=== PATIENT | male | born 1995 | race Caucasian/White ===

== ENCOUNTER 2020-10-19 13:05 | Emergency (ER) | payer OTHER, SELFPAY ==
[2020-10-19 13:46] VITALS: BP 123/69; PULSE 64; RESP 16; TEMP 36.7; O2SAT 97; BMI 25.1
--- NOTE | 2020-10-19 13:51 | ED_ITS ---
HPI - Wound/Laceration General Chief Complaint: Wound/Laceration Stated Complaint: finger lac Time Seen by Provider: 10/19/20 13:44 Source: patient Mode of arrival: ambulatory History of Present Illness HPI narrative: 24 y.o. M with no significant PMH presenting to the ED with laceration to right index finger. He was attempting to open a battery pack with a knife and the plastic wrap was too hard for the knife to penetrate and sustained a laceration. He is right hand dominant. He denies loss of sensation or mobility. Unknown last tetanus. No other injuries. INjury occurred 2 hours prior to arrival. Related Data Allergies Allergy/AdvReac Type Severity Reaction Status Date / Time amoxicillin Allergy Hives Verified 10/19/20 13:46 azithromycin [From Zithromax] Allergy Hives Verified 10/19/20 13:46 cefprozil [From Cefzil] Allergy Hives Verified 10/19/20 13:46 clavulanic acid Allergy Hives Verified 10/19/20 13:46 [From Augmentin] Penicillins Allergy Hives Verified 10/19/20 13:46 Review of Systems Constitutional: Constitutional: Denies fever(s) and Denies headache(s) Eyes: Eyes: Reports no additional eye complaints ENT: Denies headache(s) Cardiovascular: Cardiovascular: Denies chest pain and Denies dyspnea Respiratory: Respiratory: Denies dyspnea Gastrointestinal: Gastrointestinal: Denies abdominal pain Musculoskeletal: Musculoskeletal: Denies back pain Integumentary/Breasts: Comments: finger laceration Neurologic: Denies headache(s) Hematologic/Lymphatic: Hematologic/Lymphatic: Denies easy bleeding Allergic/Immunologic: Allergic/Immunologic: Reports no additional allergic/immunologic complaints [facility] Past Medical History Medical History Asthma Social History Social History Smoked in Last 30 Days: No Substance Use Type: Marijuana Substance Use Frequency: Occasionally Last Used Substance: Weeks (ago) Advance Directives: No Advance Directives Information Provided: Yes Physical Exam Vital Signs: Vital Signs: Last Vital Signs Temp 98.0 F 10/19/20 13:46 Pulse 64 10/19/20 13:46 Resp 16 10/19/20 13:46 BP 123/69 10/19/20 13:46 Pulse Ox 97 01/17/21 13:46 Body Mass Index 25.1 Const: General: cooperative Orientation/consciousness: patient oriented x3 HENMT: Head: Yes atraumatic Eyes: General: appearance normal, both eyes and all related structures EOM: EOMs intact bilaterally Neck: Neck: Yes trachea midline and Yes supple Resp: Effort & Inspection: normal respiratory effort and able to speak in complete sentences Cardio: Rate: regular rate GI: Inspection: No distended Back/Spine/Pelvis: Other: normal ROM Skin: Other: 2 cm laceration to right index finger along dorsal aspect of PIP extending into medial aspect of index finger between index and thumb, bleeding controlled with gauze, superficial, no bony or tendon exposure, able to flex and extend at the DIP, PIP, MCP, able to make a fist and an OK sign, compartments soft, neurovascularly intact Neuro: General: patient oriented x3 Extrem: General: Yes full ROM Course Course Course Narrative: Pt. tolerated suture repair well. Wound was wrapped with nonadhesive bandage and kerlex gauze. Discussed proper wound care. Return in 7 days for stich removal. Return precautions provided, infectious signs provided. Procedures Laceration Laceration 1: Site: hand Side (If applicable): right Size (cm): 2 Description: linear (digital block performed, wound was soaked with NS and betadine, neurovascularly intact pre and post procedure, bleeding controlled ) Depth: simple, single layer Local Anesthetic: lidocaine 1% Amount of anesthesia used (mL): 4 Skin layer closed with: nylon Size (cm): 5-0 Number of sutures: 2 Technique: simple, interrupted MDM - Wound/Laceration MDM Narrative Medical decision making narrative: 24 y.o. M presenting to the ED with finger laceration, occured today,unknown last tetanus VS stable, not toxic appearing, hemodynamically stable Will plan for suture repair. Will update tetanus. Bleeding controlled with gauze, no evidence of arterial bleeding. No tenderness to hand to suggest undrlying fx. Compartments soft. No evidence of FB. No indication for imaging as pt. has full ROM, doubt underlying fx. No scaphoid tenderness. Unlikely to have tendon injury as he is able to flex and extend at each joint. Discharge Plan Discharge Clinical Impression: Laceration Patient Disposition: Home, Self-Care Instructions: Finger Laceration (ED) Additional Instructions: Please return in 7 days for stich removal. You had two stiches placed. Keep area dry and clean for the next 24 hours afterwards you may rinse with soap and water. Please return sooner if your finger becomes red, swollen, pus draining from the wound, unable to move your finger, or any other concerning symptoms. No prescriptions given.
[2020-10-19] MEDS: Lidocaine HCl 1 % MPF 5 ML VIAL SUBCUT ×2 (14:50)
== END 2020-10-19 14:57 | disposition home or self-care (01) ==
LOC: HO.ED 14:03
PROVIDERS: Emergency Provider Emergency Medicine Emergency Medical Services
DX: S61.210A Laceration without foreign body of right index finger without damage to nail, initial encounter (principal); S60.511A Abrasion of right hand, initial encounter; M79.641 Pain in right hand; W26.9XXA Contact with unspecified sharp object(s), initial encounter; Y93.9 Activity, unspecified; Y92.9 Unspecified place or not applicable; Y99.9 Unspecified external cause status; F12.90 Cannabis use, unspecified, uncomplicated
CPT/HCPCS: 12001; 90471; 90715; 99283; 99284

== ENCOUNTER 2020-10-26 14:24 | Emergency (ER) | payer OTHER, SELFPAY ==
[2020-10-26 14:46] VITALS: BP 104/71; PULSE 66; RESP 18; TEMP 37.1; O2SAT 98; BMI 25.1
--- NOTE | 2020-10-26 14:58 | ED.SKABFB ---
HPI - Skin/Abscess/Foreign Bdy General Chief complaint: Skin/Abscess/Foreign Body Stated complaint: suture removal Time Seen by Provider: 10/26/20 14:50 Source: patient Mode of arrival: ambulatory Limitations: no limitations History of Present Illness HPI narrative: Patient had sutures placed the right hand index finger 7 days ago. He reports some mild swelling, erythema and drainage from the site. No fevers or chills. Here for removal MD complaint: other (suture removal ) Onset (ago): week(s) (1 week ) Tetanus up to date: yes Location: R hand (index finger ) Severity: mild Treatments prior to arrival: none Related Data Previous Rx's Medication Instructions Recorded sulfamethoxazole-trimethoprim 1 tab PO Q12H #14 tab 10/26/20 [Bactrim DS] Allergies Allergy/AdvReac Type Severity Reaction Status Date / Time amoxicillin Allergy Hives Verified 10/19/20 13:46 azithromycin [From Zithromax] Allergy Hives Verified 10/19/20 13:46 cefprozil [From Cefzil] Allergy Hives Verified 10/19/20 13:46 clavulanic acid Allergy Hives Verified 10/19/20 13:46 [From Augmentin] Penicillins Allergy Hives Verified 10/19/20 13:46 Review of Systems Review of Systems: Yes all other systems are reviewed and are negative Constitutional: Constitutional: Reports no additional constitutional complaints, Denies body ache(s), Denies chills, Denies fever(s), Denies headache(s) and Denies weakness Eyes: Eyes: Reports no additional eye complaints and Denies change in vision ENT: Reports system reviewed and no additional complaints, except as documented, Denies dizziness, Denies headache(s), Denies nasal congestion, Denies nasal discharge and Denies neck pain Cardiovascular: Cardiovascular: Reports no additional cardiovascular complaints, Denies chest pain, Denies leg edema and Denies dyspnea Respiratory: Respiratory: Reports no additional respiratory complaints, Denies cough and Denies dyspnea Gastrointestinal: Gastrointestinal: Reports no additional gastrointestinal complaints, Denies abdominal pain, Denies diarrhea, Denies nausea and Denies vomiting Genitourinary: Genitourinary: Denies urinary incontinence Musculoskeletal: Musculoskeletal: Reports no additional musculoskeletal complaints, Denies back pain, Denies arthralgias, Denies joint swelling, Denies neck pain, Denies numbness and Denies tingling Integumentary/Breasts: Skin/Breast: Reports system reviewed and no additional complaints, except as docu, Reports swelling, Reports erythema and Denies rash Neurologic: Reports system reviewed and no additional complaints, except as documented, Denies Abnormal speech present, Denies dizziness, Denies headache(s), Denies numbness, Denies tingling and Denies weakness PMF Past Medical History Attestation statement: The following information was validated with the patient. Source: old records reviewed and nursing notes reviewed Medical History Asthma Social History Social History Substance Use Type: Marijuana Advance Directives: No Advance Directives Information Provided: No Physical Exam Vital Signs: Vital Signs: Last Vital Signs Temp 98.7 F 10/26/20 14:46 Pulse 66 10/26/20 14:46 Resp 18 10/26/20 14:46 BP 104/71 10/26/20 14:46 Pulse Ox 98 10/26/20 14:46 Body Mass Index 25.1 Const: General: cooperative, healthy appearing, comfortable and no acute distress Orientation/consciousness: patient oriented x3 Limitations: no limitations HENMT: Head: Yes normal to inspection Ears: hearing grossly normal bilaterally General nose exam: Normal external nose present Face and sinus: Yes normal facial exam Mouth: Normal oral and palatal mucosa present Throat: Yes posterior oropharynx normal Eyes: General: appearance normal, both eyes and all related structures Pupils: Equal, round and reactive pupils present Neck: Neck: Yes normal visual inspection Chest: Chest palpation & inspection: normal inspection of the chest Resp: Effort & Inspection: normal respiratory effort Auscultation: clear to auscultation bilaterally Cardio: Rate: regular rate Rhythm: regular rhythm Peripheral pulses: Peripheral pulses 2+ throughout GI: Inspection: Yes normal to inspection Palpation (GI): Soft to palpation and nontender Auscultation: normal bowel sounds Back/Spine/Pelvis: Thoracic/Lumbar Spine: thoracic and lumbar spine normal to inspection Skin: General skin exam: no rashes or lesions noted Neuro: General: patient oriented x3, no focal motor deficits and normal sensation to monofilament Cranial nerves: Yes Equal, round and reactive pupils present Cognition (Neuro): normal cognition Speech: No Abnormal speech present Gait exam (Neuro): Normal gait present Motor exam (neuro): 5/5 motor strength present throughout Extrem: Other: To the dorsal aspect of the right index finger there is sutures present. Mild erythema, tenderness and drainage when expressed. General: Yes normal to inspection Course Course Course Narrative: See procedure note. Sutures removed. Mild wound infection. Will start patient on antibiotics. He is able to flex and extend the finger with no difficulty. Reviewed worrisome signs and symptoms and when to return to the emergency department. Comfortable discharge home. Procedures Procedure Narrative Procedure Narrative: Two sutures removed from right index finger Discharge Plan Discharge Clinical Impression: Wound infection Patient Disposition: Home, Self-Care Instructions: Wound Infection (ED) Additional Instructions: Start taking the antibiotics Apply topical antibiotic ointment and keep covered Prescriptions: New sulfamethoxazole-trimethoprim [Bactrim DS] 800-160 mg tablet 1 tab PO Q12H Qty: 14 RF: 0 Referrals: ED Physician,Generic [Physician] - 2 days Interventions: ED Discharge Assessment Last Done: 10/26/20 15:04 Discharge Date/Time: 10/26/20 15:05
== END 2020-10-26 15:05 | disposition home or self-care (01) ==
PROVIDERS: Emergency Provider Internal Medicine
DX: L02.511 Cutaneous abscess of right hand (principal); Z48.02 Encounter for removal of sutures
CPT/HCPCS: 99283